=== PATIENT | female | born 1950 | race Two or more races ===

== ENCOUNTER 2017-10-05 08:49 | Emergency (ER) | payer MEDICARE, OTHER ==
[~2017-10-05] VITALS: Ht 152.4 cm; Wt 68.0 kg
[2017-10-05] MEDS ORDERED: TRIAMTERENE-HC1 EAC7 ORAL (09:05)
[2017-10-05] MEDS ORDERED: TAMIFLU75 MG ORAL (10:14)
[2017-10-05] MEDS ORDERED: IBUPROFEN600 MG ORAL (10:14)
[2017-10-05] MEDS ORDERED: TYLENOL325 MG ORAL (10:14)
[2017-10-05 10:28] VITALS: BP 153/97
--- NOTE | 2017-10-07 14:14 | Emergency Room Report ---
History of Present Illness General Chief Complaint: Upper Respiratory Illness Source: Patient Present Illness HPI 67-year-old female with body aches, fevers, chills, headache and nausea since last night did not get flu vaccine this year Denies COPD, asthma, CHF, diabetes didnt take any sypm-uhp-zwcalpy medications No sick contacts Allergies: Coded Allergies: No Known Allergies (Unverified , 10/05/17) Patient History Past Medical History: none Past Surgical History: none Social History: Denies: smoking, alcohol use, drug use Now: No Immunizations: UTD Reviewed Nursing Documentation: PMH: Agreed, PSxH: Agreed Nursing Documentation-PMH Past Medical History: No History, Except For Hx Hypertension: Yes Review of Systems All Other Systems: negative except mentioned in HPI Physical Exam Vital Signs Date Time Temp Pulse Resp B/P (MAP) Pulse Ox O2 Delivery O2 Flow Rate FiO2 10/05/17 09:00 98.8 117 20 153/97 95 Room Air Sp02 EP Interpretation: reviewed, normal General Appearance: normal inspection, well appearing, no apparent distress, alert, GCS 15, non-toxic Head: normocephalic, atraumatic Eyes: bilateral eye PERRL, bilateral eye EOMI ENT: normal ENT inspection, hearing grossly normal, normal pharynx, no angioedema, normal voice, TMs + canals normal, uvula midline, moist mucus membranes Neck: normal inspection, full range of motion, supple, thyroid normal, no meningismus, no bony tend Respiratory: normal inspection, lungs clear, normal breath sounds, no rhonchi, no respiratory distress, no retraction, no accessory muscle use, no wheezing, speaking full sentences Cardiovascular #1: regular rate, rhythm, no edema, no JVD, normal capillary refill Gastrointestinal: normal inspection, normal bowel sounds, non tender, soft, no mass, no peritonitis, non-distended, no guarding, no hernia, no pulsatile mass Genitourinary: no CVA tenderness Musculoskeletal: normal inspection, back normal, normal range of motion, no calf tenderness, pelvis stable, Delores's Sign negative Neurologic: normal inspection, alert, oriented x3, responsive, 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, motor strength/tone normal, cerebellar normal, normal gait, speech normal Psychiatric: normal inspection, judgement/insight normal, mood/affect normal, no suicidal/homicidal ideation, no delusions Skin: normal inspection, normal color, no rash Lymphatic: normal inspection, no adenopathy Medical Decision Making Diagnostic Impression: Primary Impression: Flu-like symptoms ER Course vital signs stable, afebrile Headache and myalgias likely influenza related low suspicion for SAH or meningitis given no focal neurological deficits, rapid improvement with medication, no associated neck stiffness, no meningismus Symptoms improved with PO Zofran, Tylenol and ibuprofen given symptoms of less than 24 hours we'll start patient on Tamiflu, other supportive medication ER course: Patient has remained stable during ED stay. Disposition: Patient is to be discharged to home. Prescriptions given are tamiflu, tylenol, motrin Patient is instructed to follow up with their primary care doctor within 1-2 days. Strict return precautions discussed with patient such as fever, chills, worsening/severe pain, nausea, vomiting, which may indicate severe illness. Patient verbalizes understanding and agrees with plan. Please note that this Emergency Department Report was dictated using [employer] system analyst technology software, occasionally this can lead to erroneous entry secondary to interpretation by the dictation equipment Last Vital Signs Date Time Temp Pulse Resp B/P (MAP) Pulse Ox O2 Delivery O2 Flow Rate FiO2 10/05/17 10:28 98.8 20 153/97 95 Room Air 10/05/17 09:21 117 Status: improved Disposition: HOME, SELF-CARE Condition: Improved Scripts Acetaminophen (Tylenol) 325 Mg Tablet 650 MG ORAL Q6H Y for Prn Pain/Headache/Temp > 101 for 7 Days, #30 TAB 0 Refills Prov: IRENE ZAZUETA M.D. 10/05/17 Ibuprofen* (MOTRIN*) 600 Mg Tablet 600 MG ORAL THREE TIMES A DAY for headache, body aches for 7 Days, #30 TAB 0 Refills Prov: IRENE ZAZUETA M.D. 10/05/17 Oseltamivir Phosphate (Tamiflu) 75 Mg Capsule 75 MG ORAL TWICE A DAY for 5 Days, #10 CAP Prov: IRENE ZAZUETA M.D. 10/05/17 Patient Instructions: Influenza, Adult, [id number] IRENE ZAZUETA M.D. Oct 07, 2017 14:14
== END 2017-10-05 10:29 | disposition home or self-care (01) ==
LOC: EMR 10:03
DX: J11.1 Influenza due to unidentified influenza virus with other respiratory manifestations (principal); I10 Essential (primary) hypertension
CPT/HCPCS: 99284